=== PATIENT | male | born 1990 | race Caucasian/White ===

== ENCOUNTER 2018-05-21 02:02 | Emergency (ER) | payer OTHER ==
[~2018-05-21] VITALS: Ht 180.3 cm; Wt 62.4 kg
[2018-05-21 02:08] VITALS: BP 135/91
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
[2018-05-21] MEDS ORDERED: KETOROLAC 60 MG/2 ML VIAL IM ONE (02:30)
[2018-05-21 03:00] VITALS: BP 135/91
--- NOTE | 2018-05-21 03:00 | NUR ---
Patient discharged with v/s stable. Written and verbal after care instructions given and explained. Patient alert, oriented and verbalized understanding of instructions. Ambulatory with steady gait. All questions addressed prior to discharge. ID band removed. Patient advised to follow up with PMD. Rx of Motrin, Bactrim, Keflex given. Patient educated on indication of medication including possible reaction and side effects. Opportunity to ask questions provided and answered.
== END 2018-05-21 03:00 | disposition home or self-care (01) ==
LOC: MED 02:02
DX: L03.116 Cellulitis of left lower limb (principal); L03.115 Cellulitis of right lower limb; F17.210 Nicotine dependence, cigarettes, uncomplicated
CPT/HCPCS: 96372; 99283; J1885

== ENCOUNTER 2022-05-22 05:17 | Emergency (ER) | payer OTHER ==
[~2022-05-22] VITALS: Ht 180.3 cm; Wt 61.2 kg
[2022-05-22 05:20] VITALS: BP 72/46
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
--- NOTE | 2022-05-22 05:46 | NUR ---
PATIENT REFUSED TO BE TRANSPORTED BY AMBULANCE AND STATED THAT PD TOOK REPORT AT THE SEEN.
[2022-05-22] MEDS ORDERED: NACL 0.9% 1,000 ML IV ONE ×2 (05:50)
--- NOTE | 2022-05-22 05:54 | NUR ---
IV ESTABLISHED, LABS COLLECTED AND HNDED TO LAB
[2022-05-22] MEDS ORDERED: ceFAZolin 1,000 MG VIAL ONE (05:56)
[2022-05-22 06:14] LABS: BASOPHILS % (AUTO) 0.2 % (0.0-2.0); EOSINOPHILS # (AUTO) 0.1 K/uL (0-0.4); EOSINOPHILS % (AUTO) 0.8 % (0.0-4.0); HEMATOCRIT 36.7 % (36-52); HEMOGLOBIN 12.3 g/dL (12.0-18.0); LYMPHOCYTES # (AUTO) 1.4 K/uL (2.0-11.5); LYMPHOCYTES % (AUTO) 8.9 % (20.5-51.1); MEAN CORPUSCULAR HEMOGLOBIN 30 pg (27-31); MEAN CORPUSCULAR HGB CONC 34 g/dL (33-37); MEAN CORPUSCULAR VOLUME 90.3 fL (80-94); MONOCYTES # (AUTO) 0.9 K/uL (0.8-1.0); NEUTROPHILS # (AUTO) 13.1 K/uL (1.8-7.7); PLATELET COUNT (AUTO) 318 K/uL (140-450); RED BLOOD CELL COUNT(AUTO) 4.07 MIL/uL (4.20-6.10); RED CELL DISTRIBUTION WIDTH 14.5 % (11.6-13.7); WHITE BLOOD COUNT (AUTO) 15.6 K/uL (4.8-10.8)
--- NOTE | 2022-05-22 06:15 | NUR ---
JOSEPH TAKEN TO CT VIA [facility]
--- NOTE | 2022-05-22 06:17 | NUR ---
SIGNIFICANT OTHER AT BEDSIDE
--- NOTE | 2022-05-22 06:20 | NUR ---
LAB AT BEDSIDE
[2022-05-22 06:27] LABS: PROTHROMBIN TIME 10.3 secs (10.8-13.4)
[2022-05-22 06:35] LABS: NEUTROPHILS % (AUTO) 84.1 % (42.2-75.2)
[2022-05-22 06:42] LABS: ALBUMIN 3.9 g/dL (3.4-5.0); ANION GAP 9.4 (8-16); CARBON DIOXIDE 26.9 mmol/L (21-32); CREATININE 0.9 mg/dL (0.6-1.3); POTASSIUM 3.3 mmol/L (3.5-5.1); TOTAL BILIRUBIN 0.6 mg/dL (0.0-1.0)
--- NOTE | 2022-05-22 06:55 | NUR ---
PATIENT RETURNED FROM CT VIA [facility]
--- NOTE | 2022-05-22 07:05 | NUR ---
JOSEPH TAKEN TO CT VIA MD JUANCARLOS REYES ADDED CT WITH CONTRAST. CALLED CT TO NOTIFY OF THE NEW ORDER
--- NOTE | 2022-05-22 07:26 | NUR ---
Recieved report from RAD Manriquez for transfer of care.
--- NOTE | 2022-05-22 07:30 | NUR ---
[facility]
--- NOTE | 2022-05-22 09:06 | NUR ---
DR. MORENO AT BEDSIDE EVALUATING PATIENT.
[2022-05-22] MEDS ORDERED: ACETAMINOPHEN EXTRA STRENGTH 500 MG TAB PO ONE (09:10)
[2022-05-22] MEDS ORDERED: KETOROLAC 30 MG/ML VIAL IVP ONE (09:10)
[2022-05-22] MEDS ORDERED: BACITRACIN OINT 500 UNITS/GM PKT TP ONE (09:10)
[2022-05-22] MEDS ORDERED: CEPH-588 PO (09:41)
[2022-05-22] MEDS ORDERED: IBUP-2213 PO (09:41)
[2022-05-22] MEDS ORDERED: ACET-8386 PO (09:41)
[2022-05-22 09:55] VITALS: BP 99/61
--- NOTE | 2022-05-22 10:24 | NUR ---
APPLIED DRESSING TO PTS RIGHT FOREARM AND HAND AND WRAPPED WITH 2 INCH ROLLER GAUZE. AFTERWARDS APPLIED A 4 INCH FIBERGLASS FABRICATED SPLINT FOR A THUMB SPICA. WRAPPED SPICA WITH 3 INCH ROLLER GAUZE X2. +CMS BEFORE/AFTER. PT DID NOT COMPLAIN OF ANY PAIN OF DISCOMFORT A RESULT OF THE DRESSINGS AND THUMB SPICA SPLINT. PT DID NOT HAVE ANY QUESTIONS AT THIS TIME. ERMD NOTIFIED.
--- NOTE | 2022-05-22 11:06 | NUR ---
Patient discharged with v/s stable. Written and verbal after care instructions given. Patient alert, oriented and verbalized understanding of instructions. Ambulatory with steady gait. All questions addressed prior to discharge. ID band removed. Patient advised to follow up with PMD. Rx of KEFLEX, IBUPROFEN AND HYDROCODONE-ACETAMINOPHEN given. Opportunity to ask questions provided and answered.
--- NOTE | 2022-05-22 11:45 | NUR ---
The patient's care was reviewed and supervised by [facility], RN.
== END 2022-05-22 11:06 | disposition home or self-care (01) ==
LOC: MED 05:17
DX: S63.91XA Sprain of unspecified part of right wrist and hand, initial encounter (principal); S80.212A Abrasion, left knee, initial encounter; S80.211A Abrasion, right knee, initial encounter; S60.812A Abrasion of left wrist, initial encounter; S60.511A Abrasion of right hand, initial encounter; S50.811A Abrasion of right forearm, initial encounter; S09.90XA Unspecified injury of head, initial encounter; S39.91XA Unspecified injury of abdomen, initial encounter; M54.2 Cervicalgia; M79.632 Pain in left forearm; Z79.899 Other long term (current) drug therapy; V29.49XA Motorcycle driver injured in collision with other motor vehicles in traffic accident, initial encounter; Y93.89 Activity, other specified; Y92.89 Other specified places as the place of occurrence of the external cause; Y99.8 Other external cause status
CPT/HCPCS: 29125; 36415; 70450; 71260; 72125; 73090; 73130; 73562; 74177; 80053; 85025; 85610; 86900; 86901; 90471; 90715; 96361; 96365; 96374; 99285; J0690; J1885; Q9967; J7030

== ENCOUNTER 2022-05-25 05:44 | Emergency (ER) | payer OTHER ==
[~2022-05-25] VITALS: Ht 180.3 cm; Wt 61.2 kg
[~2022-05-25 05:44] MED LIST: ACET-8386 PO; CEPH-588 PO; IBUP-2213 PO
[2022-05-25 05:55] VITALS: BP 145/98
--- NOTE | 2022-05-25 05:57 | NUR ---
pt ambualtory to bed 5.
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
[2022-05-25] MEDS ORDERED: BACI-352 TP (07:09)
--- NOTE | 2022-05-25 07:41 | NUR ---
Patient discharged with v/s stable. Written and verbal after care instructions given and explained. Patient alert, oriented and verbalized understanding of instructions. Ambulatory with steady gait. All questions addressed prior to discharge. ID band removed. Patient advised to follow up with PMD. Rx of NEOSPORIN given. Patient educated on indication of medication including possible reaction and side effects. Opportunity to ask questions provided and answered.
[2022-05-25 07:42] VITALS: BP 145/98
== END 2022-05-25 07:41 ==
LOC: MED 05:44
DX: S30.810A Abrasion of lower back and pelvis, initial encounter (principal); S40.811A Abrasion of right upper arm, initial encounter; S80.811A Abrasion, right lower leg, initial encounter; F17.210 Nicotine dependence, cigarettes, uncomplicated; V43.92XA Unspecified car occupant injured in collision with other type car in traffic accident, initial encounter; Y93.89 Activity, other specified; Y92.89 Other specified places as the place of occurrence of the external cause; Y99.8 Other external cause status
CPT/HCPCS: 99282; 99283